=== PATIENT | male | born 1960 | race Caucasian/White ===

== ENCOUNTER 2017-03-29 15:54 | Inpatient (IN) | payer OTHER ==
[~2017-03-29] VITALS: Ht 182.9 cm; Wt 121.5 kg
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
--- NOTE | ~2017-03-29 | ENPV ---
Vascular Lower Extremities DVT Study Procedure Demographics Patient Name SUHA HERRING Date of Study 03/29/2017 Patient Number [id number] Gender Male Date of 1960 Age 56 Visit Number [id number] Height Accession Number [id number] Weight Room Number G3208 BSA BMI Referring Patricia Manjarrez Interpreting Juan Keene MD Physician Bren Manjarrez MD Physician Physician Ordering Physician Patricia Manjarrez Calender Wind Up Helper Bar Pilot Kem Vo RD, RVT Conclusions Summary There are several mildly enlarged lymph nodes noted in the inguinal groin. No evidence of deep vein thrombosis or superficial thrombophlebitis in the right lower extremity . Procedure Type of Study: Veins:Lower Extremities DVT Study, Lower Extremity Right. Indications for Study:Pain in Limb and Swelling of Limb. Appropriate Use Criteria:9 Patient Status:STAT. Study Location:ER. Technical Quality:Good visualization. Velocities are measured in cm/s ; Diameters are measured in cm Right Lower Extremities DVT Study Measurements Right 2D and Doppler Measurements + + + + +------+------+ + !Location !Visualized!Compressibility!Thrombosis!Signal!Reflux!Reflux ! ! ! ! ! ! ! !(sec) ! + + + + +------+------+ + !GSV Thigh !Yes !Yes !None !Phasic! ! ! + + + + +------+------+ + !Common !Yes !Yes !None !Phasic! ! ! !Femoral ! ! ! ! ! ! ! + + + + +------+------+ + !Prox !Yes !Yes !None !Phasic! ! ! !Femoral ! ! ! ! ! ! ! + + + + +------+------+ + !Mid Femoral!Yes !Yes !None !Phasic! ! ! + + + + +------+------+ + !Dist !Yes !Yes !None !Phasic! ! ! !Femoral ! ! ! ! ! ! ! + + + + +------+------+ + !Popliteal !Yes !Yes !None !Phasic! ! ! + + + + +------+------+ + !Gastroc !Yes !Yes !None ! ! ! ! + + + + +------+------+ + !PTV !Yes !Yes !None ! ! ! ! + + + + +------+------+ + !Peroneal !Yes !Yes !None ! ! ! ! + + + + +------+------+ + Left Lower Extremities DVT Study Measurements Left 2D and Doppler Measurements + + + + +------+------+ + !Location !Visualized!Compressibility!Thrombosis!Signal!Reflux!Reflux ! ! ! ! ! ! ! !(sec) ! + + + + +------+------+ + !Common !Yes !Yes !None !Phasic! ! ! !Femoral ! ! ! ! ! ! ! + + + + +------+------+ + Signature dtt: KAMILA HARMON dtd: 03/29/17 1901 Physician Self Edit
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
--- NOTE | ~2017-03-29 | OR ---
PATIENT'S NAME: SUHA PLATA [facility] AGE: 56 Y [address] ROOM: [place] [address] LOCATION: [facility] [place] ADMIT DATE: 03/29/2017 OR/Procedure Report DISCHARGE DATE: 04/06/2017 FAMILY PHYSICIAN: JUAN JOSE GUZMAN MD ATTENDING PHYSICIAN: JUAN JOSE GUZMAN SURGEON: Torrie Gee MD FUEL EFFICIENT AIRCRAFT DESIGNER: None. DATE OF PROCEDURE: 03/30/2017 Added width of wound per physician 04/17/2017 AO POSTOPERATIVE DIAGNOSES: 1. Right thigh abscess. 2. History of vascular stenting and complex wound closure in outside institution. POSTOPERATIVE DIAGNOSES: 1. Right thigh abscess. 2. History of vascular stenting and complex wound closure in outside institution. PROCEDURES: 1. Irrigation and debridement of right thigh abscess measuring 20 cm in length, 7 cm in depth, and 7 cm in width at thigh. Debridement included skin, subcutaneous tissue, muscle, and fascia. 2. Placement of a negative pressure incisional wound VAC. Wound measuring 20 cm in length and 7 cm in depth, and 7 cm in width (>50 sq cm). ANESTHESIA: General endotracheal anesthesia. FLUIDS: See anesthesia report. ESTIMATED BLOOD LOSS: 20 mL. SPECIMEN: Right thigh tissue and cultures. COMPLICATIONS: None. DISPOSITION: Stable in PACU. COUNTS: All counts correct. INDICATIONS: Mr. Plata is a pleasant 56-year-old gentleman, who underwent the noted procedures above. The risks, benefits, and alternatives pursuing surgical intervention were discussed the patient detail. He elected to proceed with surgery as noted above. Anesthesia was consulted for their perioperative evaluation the patient. I marked the right thigh indicating correct surgical PATIENT'S NAME: SUHA PLATA [facility] AGE: 56 Y [address] ROOM: [place] [address] LOCATION: [facility] [place] ADMIT DATE: 03/29/2017 OR/Procedure Report DISCHARGE DATE: 04/06/2017 FAMILY PHYSICIAN: JUAN JOSE GUZMAN MD ATTENDING PHYSICIAN: JUAN JOSE GUZMAN. DESCRIPTION OF PROCEDURE: The patient was brought from the holding area to the operating room. A time-out was performed. Antibiotics were already being scheduled. The right lower extremity then prepped and draped in a sterile fashion. I turned my attention the right thigh. There was an abscess measuring approximately 20 cm in length followed by 7 cm in depth. This due to a previous incision. Admitting secondarily infected. The debridement included skin, subcutaneous tissue, muscle, fascia. I passed 6 L of normal sterile saline solution through the wound via pulsatile lavage. A series of 15 blade knifes, 10 blade knifes and curette and rongeur as were used for the debridement portion of the procedure. After the wound was thoroughly debrided, a negative pressure wound VAC was applied to the thigh. A good seal was encountered. A bulky Weeks dressing was placed to the right leg. The patient was then transferred to operating table onto the stretcher and extubated. He was brought to recovery room in stable condition. Intraoperative cultures of the wound as well as nonviable soft tissue was sent to the lab for culture and analysis. There were no intraoperative complications noted. IMPRESSION: The patient is status post the noted procedures above. PLAN: The patient will be weightbearing as tolerated in the right lower extremity with the wound VAC. We will maintain wound VAC therapy for now. Antibiotics will be as ordered. The Hospitalist continue to manage the patient's concomitant medical comorbidities. We will follow up the intraoperative cultures. Physical Therapy and Occupational Therapy will consulted for early ambulation prevention of deconditioning. The patient may be right weightbearing as tolerated on the right lower extremity. The patient will likely require return to the operating room. The next 48 to 72 hours to have a the wound re-irrigated and debrided it with a new placement of wound VAC. DVT prophylaxis will be in the form of Lovenox. I will follow the patient closely in the postoperative period. TORRIE GEE MD PATIENT'S NAME: SUHA PLATA [facility] AGE: 56 Y [address] ROOM: [place] [address] LOCATION: [facility] [place] ADMIT DATE: 03/29/2017 OR/Procedure Report DISCHARGE DATE: 04/06/2017 FAMILY PHYSICIAN: JUAN JOSE GUZMAN MD ATTENDING PHYSICIAN: JUAN JOSE GUZMAN/keri /[id number] Added width of wound per physician 04/17/2017 AO d: 03/30/17 1800 t: 04/18/17 1042, OPERATIVE SUMMARY
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
--- NOTE | ~2017-03-29 | OR ---
PATIENT'S NAME: SUHA PLATA [facility] AGE: 56 Y [address] ROOM: [address] [address] LOCATION: [facility] [place] ADMIT DATE: 03/29/2017 OR/Procedure Report DISCHARGE DATE: 04/06/2017 FAMILY PHYSICIAN: JUAN JOSE GUZMAN MD ATTENDING PHYSICIAN: JUAN JOSE GUZMAN SURGEON: Torrie Gee MD RESIDENTIAL PROPERTY TAX APPRAISER: Bk Perry PA-C. DATE OF PROCEDURE: 04/03/2017 Added width of wound per physician 04/17/2017 AO PREOPERATIVE DIAGNOSIS: Right infected thigh wound. POSTOPERATIVE DIAGNOSIS: Right infected thigh wound. PROCEDURE: 1. Repeat irrigation and debridement of right thigh wound, measuring 20 cm in length x 7 cm in depth, and 7 cm in width. Debridement included skin, subcutaneous tissue, muscle, and fascia. 2. Placement of negative pressure wound VAC (>50 sq cm). ANESTHESIA: General endotracheal anesthesia. ESTIMATED BLOOD LOSS: Less than 25 mL. SPECIMEN: None. TOURNIQUET: None. COMPLICATIONS: None. DISPOSITION: Stable in PACU. COUNTS: All counts were correct. INDICATIONS: Mr. Plata is a 56-year-old gentleman, who underwent the noted procedures above. The risks, benefits, and alternatives pursuing a surgical intervention were discussed the patient in detail. The patient elected to proceed with surgery. Anesthesia was consulted for their perioperative evaluation of the patient. I marked the right thigh indicating the correct surgical site. DESCRIPTION OF PROCEDURE: The patient was brought from the holding area to the operative room. A time-out was performed. General endotracheal anesthesia was administered. The patient is currently receiving scheduled antibiotics. The right lower extremity was then prepped and draped in a sterile fashion. I PATIENT'S NAME: SUHA PLATA [facility] AGE: 56 Y [address] ROOM: [address] [address] LOCATION: [facility] [place] ADMIT DATE: 03/29/2017 OR/Procedure Report DISCHARGE DATE: 04/06/2017 FAMILY PHYSICIAN: JUAN JOSE GUZMAN MD ATTENDING PHYSICIAN: JUAN JOSE GUZMAN turned my attention to the right thigh. We measured the wound, which measured 20 cm in length by approximately 7 cm in depth. The soft tissue looked more granulated. There did not appear to be active infection. There was good bleeding present. A 1.5 L of normal sterile saline solution via pulsatile lavage was placed to the wound. I then performed my debridement. I used a 10 blade knife and a series of curette and rongeur to remove nonviable tissue. Debridement included skin, subcutaneous tissue, muscle, and fascia. The wound was then copiously irrigated again with another 1.5 L of normal sterile saline solution. A silver impregnated wound VAC was placed in the wound and attached the wound VAC therapy. A good seal with drapes was established. Sterile dressings were then placed in the form of Webril and Bryan wrap from the toes up to the proximal thigh to provide a compressive dressing. The patient was then transferred to the operating room table on the stretcher and extubated. He was brought to the recovery room in stable condition. There were no intraoperative complications noted. Of note, my PA, Bk Perry PA-C, played an integral role in the intraoperative care of this patient. This included preoperative positioning, intraoperative expert retraction, and closing and wound VAC dressing functions. IMPRESSION: The patient is status post the noted procedure above. PLAN: The patient will be weightbearing as tolerated in the right lower extremity. Aspirin may be used for DVT prophylaxis. Antibiotics will be continued as scheduled. The Case Management and Social Work will likely plan the patient to have a home wound VAC. I believe that in the next 1 to 2 weeks after continuing antibiotic therapy, the patient may be a candidate for primary closure of the wound. We will ask the wound care service to see and monitor the wound VAC on the floor. I will continue to monitor the patient closely in the postoperative period. TORRIE GEE MD RCD/modl PATIENT'S NAME: SUHA PLATA [facility] AGE: 56 Y [address] ROOM: [address] [address] LOCATION: [facility] [place] ADMIT DATE: 03/29/2017 OR/Procedure Report DISCHARGE DATE: 04/06/2017 FAMILY PHYSICIAN: JUAN JOSE GUZMAN MD ATTENDING PHYSICIAN: JUAN JOSE GUZMAN /[id number] Added width of wound per physician 04/17/2017 AO d: 04/03/17 1043 t: 04/18/17 1047, OPERATIVE SUMMARY
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
[2017-03-29 17:07] LABS: BASOPHIL # 0.1 K/uL (0.0-0.2); BASOPHIL % 0.5 %; EOSINOPHIL # 0.2 K/uL (0.0-0.5); EOSINOPHIL % 1.6 %; HEMATOCRIT 36.1 % (37.0-53.0); HEMOGLOBIN 11.6 g/dL (12.0-17.0); IMMATURE GRANULOCYTE % 0.3 %; LYMPHOCYTE # 1.4 K/uL (0.8-4.0); MCH 29.2 pg (27.0-34.0); MCHC 32.1 gm/dL (32.0-36.5); MCV 90.9 fl (83.0-98.0); MONOCYTE # 0.9 K/uL (0.0-1.0); MONOCYTE % 8.1 %; NEUTROPHIL # (ANC) 8.5 K/uL (1.4-9.0); NEUTROPHIL % 76.5 %; NRBC % 0 /100WBC (0-0.00); PLATELET COUNT 257 K/uL (150-450); RBC 3.97 M/uL (4.00-6.00); RDW-CV 13.2 % (11.9-14.6); WBC 11.1 K/uL (4.0-11.0)
[2017-03-29 17:11] LABS: BILIRUBIN URINE NEGATIVE (NEGATIVE); BLOOD URINE NEGATIVE /UL (NEGATIVE); COLOR URINE YELLOW (YELLOW); GLUCOSE URINE NEGATIVE (NEGATIVE); KETONE URINE NEGATIVE (NEGATIVE); LEUKOCYTES URINE NEGATIVE /UL (NEGATIVE); NITRITE URINE NEGATIVE (NEGATIVE); PROTEIN URINE NEGATIVE (NEGATIVE); TURBIDITY URINE CLEAR (CLEAR); UROBILINOGEN URINE NORMAL (NORMAL)
[2017-03-29 17:15] LABS: INR - (THERAPEUTIC) 1.01 (0.92-1.07); PROTIME 10.6 SECONDS (9.8-11.4); PTT 29 SECONDS (25-32)
[2017-03-29 17:32] LABS: ALBUMIN 3.2 gm/dL (3.5-5.0); ALK PHOS 60 IU/L (33-138); ALT 38 IU/L (12-78); ANION GAP 14.1 (10.0-19.0); AST 17 IU/L (10-40); BLOOD UREA NITROGEN 14 mg/dL (6-24); CALCIUM 8.9 mg/dL (8.5-10.5); CHLORIDE 106 mMol/L (96-110); CO2 25 mMol/L (22-32); CREATININE 0.9 mg/dL (0.6-1.3); ESTIMATED GFR (MDRD EQUATION) > 60; POTASSIUM 4.1 mMol/L (3.7-5.1); SODIUM 141 mMol/L (135-145); TOTAL BILIRUBIN 0.3 mg/dL (0.0-1.5); TOTAL PROTEIN 8.1 g/dL (6.0-8.4)
[2017-03-29] MEDS ORDERED: MAG-OX-400(241400 MG PO (19:56)
[2017-03-29] MEDS ORDERED: FLONASE 50 MCG/16 GM NOSE (19:56)
[2017-03-29] MEDS ORDERED: STOOL SOFTENER100 MG PO (19:57)
[2017-03-29] MEDS ORDERED: SYMBICORT 16010.2 GM INH (19:57)
[2017-03-29] MEDS ORDERED: VITAMIN D1000 UNIT PO (19:58)
[2017-03-29] MEDS ORDERED: ASCORBIC ACID500 MG PO (19:58)
[2017-03-29] MEDS ORDERED: VITAMIN A10000 UNIT PO (19:58)
[2017-03-29] MEDS ORDERED: POTASSIUM99 MG PO (20:00)
[2017-03-29] MEDS ORDERED: B COMPLEX1 EACH PO (20:00)
[2017-03-29] MEDS ORDERED: NEURONTIN300 MG PO (20:00)
[2017-03-29] MEDS ORDERED: ASPIRIN325 MG PO (20:02)
[2017-03-29] MEDS ORDERED: ZINC50 M1 PO (20:02)
[2017-03-29] MEDS ORDERED: ATIVAN 1 MG1 MG PO (20:10)
[2017-03-29] MEDS ORDERED: OXYCODONE HCL10 MG PO (20:12)
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
--- NOTE | 2017-03-30 07:46 | NUR ---
Significant Event: ADMIT AT 2014. PATIENT A/O X3. ON HIS R) LATERAL THIGH IS AN MONTH OLD SURGICAL INCISION THAT IS REDENED AND OF NOW HAS 3 BLISTERED AREAS THAT CONTINUE TO GET LARGER AND ARE OOZING/WEEPING OUT COPIOUS AMOUNTS OF SERO/SANG DRAINAGE. ALSO HAS AREAS OF PETECHIAE TO R) LOWER LEG/FOOT. PATIENT HAS VERY GOOD PULSES. NUMBNESS/TINGLING TO R) LEG. IV TO R) ANTECUBITAL. ON IV ATB. ORTHO CONSULTED AND AWAITING TO SEE DR GEE. HAVE KEPT NPO SINCE MIDNIGHT IN CASE DR GEE WANTS TO DO ANYTHING THIS AM. C/O PAIN AND GAVE DILAUDID AT 2354. ALSO C/O ANXIETY AND GAVE ATIVAN AT 0635. Follow up:
--- NOTE | 2017-03-30 14:45 | NUR ---
Introduced self/role to patients Lori, patient still down at surgery. No needs over the weekend. Just got a walker, shower bench and toilet riser. She reports they are putting on a wound vac, will have to go down to surgery in a few days and they home with a wound vac. She reports there is were issues with insurance and wound vac this last time. Added my name to his marker board, will continue to follow and plan to see Sunday.
--- NOTE | 2017-03-30 14:51 | NUR ---
Significant Event: Pt denies pain. Very anxious this am, received Ativan IV at 0645 with some relief. Right thigh incision has large blisters and oozing sero/sang drainage, large amt. Incision site red throughout. NPO. Left for OR at 1030 and not back at this time for an I&D and wound vac placement. Good csm to leg. Follow up:
--- NOTE | 2017-03-30 20:51 | NUR ---
LATE ENTRY: RECIEVED PATIENT AT 1330, RESTING COMFORTABLE. O2 ON PER MASK GOOD AIR MOVEMENT BUT LUNGS ARE COARSE. 1400 PATIENT STARTING TO WAKE UP A LITTLE MORE AND IS STATING THAT HIS THROAT IS SORE. HE IS COUGHING UP SOME PHLEM AND GRABBING AT THIS THROAT STATING THAT IT HURTS. 1410 O2 SATS DROPPING AND I HAVE TO PUT NASAL CANULA ON TO MAIONTAIN SATS GREATER THAN 90%. CALL PLACED TO [facility] CONTACTED R/T O2 SATS. ORDER RECIEVED FOR ALBUTEROL. 1420 PATIENT IS STARTING TO HAVE A BIT OF A STRIDER AND ORDER WAS RECIEVED FOR ] RACEMIC EPI. 1430 PATIENT IS RESPONDING WELL TO THIS AND IS STARTING TO RELAX.
[2017-03-31 05:24] LABS: BASOPHIL % 0.4 %; EOSINOPHIL % 0.4 %; HEMATOCRIT 31.3 % (37.0-53.0); HEMOGLOBIN 9.8 g/dL (12.0-17.0); IMMATURE GRANULOCYTE % 0.3 %; LYMPHOCYTE # 1.5 K/uL (0.8-4.0); LYMPHOCYTE % 16.5 %; MCH 28.7 pg (27.0-34.0); MCHC 31.3 gm/dL (32.0-36.5); MCV 91.5 fl (83.0-98.0); MONOCYTE # 0.9 K/uL (0.0-1.0); MONOCYTE % 9.6 %; MPV 10.3 fl (9.4-12.4); NEUTROPHIL # (ANC) 6.7 K/uL (1.4-9.0); NEUTROPHIL % 72.8 %; NRBC % 0 /100WBC (0-0.00); PLATELET COUNT 259 K/uL (150-450); RBC 3.42 M/uL (4.00-6.00); RDW-CV 13.2 % (11.9-14.6); WBC 9.2 K/uL (4.0-11.0)
[2017-03-31 05:40] LABS: ANION GAP 10.9 (10.0-19.0); BLOOD UREA NITROGEN 12 mg/dL (6-24); CALCIUM 8.4 mg/dL (8.5-10.5); CHLORIDE 108 mMol/L (96-110); CO2 26 mMol/L (22-32); CREATININE 0.8 mg/dL (0.6-1.3); ESTIMATED GFR (MDRD EQUATION) > 60; POTASSIUM 3.9 mMol/L (3.7-5.1); SODIUM 141 mMol/L (135-145)
--- NOTE | 2017-03-31 08:31 | NUR ---
Significant Event: Pt alert and oriented. CSM WML. Wound vac to right hip with 50 mls output. Weaned off 02. Stood at bedside x 3 to use urinal and tolerated well. Uses walker from home. Pt hungry, ordered a regular diet for dinner. VSS, afebrile. Follow up: Cont ortho post op orders.
--- NOTE | 2017-03-31 17:58 | NUR ---
Patient is alert and oriented, VSS, on room air. 1 assist with walker. R) leg is completely wrapped in ALAINA wrap, CDI. Wound vac was not marked, unsure of output, marked now. Small pressure sore to R) buttocks, patient is able to move self with trapeze. Regular diet. Ambulated in the halls twice with PT. Had 2 BMs this shift.
[2017-04-01 05:28] LABS: BASOPHIL # 0.1 K/uL (0.0-0.2); BASOPHIL % 1.1 %; EOSINOPHIL # 0.2 K/uL (0.0-0.5); EOSINOPHIL % 4.2 %; HEMATOCRIT 33.5 % (37.0-53.0); HEMOGLOBIN 10.8 g/dL (12.0-17.0); IMMATURE GRANULOCYTE % 0.4 %; LYMPHOCYTE # 1.8 K/uL (0.8-4.0); LYMPHOCYTE % 32.2 %; MCH 28.9 pg (27.0-34.0); MCHC 32.2 gm/dL (32.0-36.5); MCV 89.6 fl (83.0-98.0); MONOCYTE # 0.5 K/uL (0.0-1.0); MPV 9.8 fl (9.4-12.4); NEUTROPHIL % 53.1 %; NRBC % 0 /100WBC (0-0.00); PLATELET COUNT 301 K/uL (150-450); RBC 3.74 M/uL (4.00-6.00); RDW-CV 13.3 % (11.9-14.6); WBC 5.7 K/uL (4.0-11.0)
--- NOTE | 2017-04-01 06:59 | NUR ---
Significant Event: A/O X3 AND COOPERATIVE WITH CARES. C/O L) LEG PAIN AND GAVE OXYCODONE X2 LAST AT 0430 WITH RELIEF NOTED. ALAINA WRAP TO R) LEG C/D/I WITH WOUND-VAC INTACT AND HAD ABOUT 50ML OF DRAINAGE THROUGH SHIFT. IV TO L) WRIST FLUSHES AND IV FLUIDS INFUSING WITHOUT DIFFICULTY. IS UP WITH 1 ASSIST AND WALKER. GROIN AREA VERY REDDENED AND EXCORIATED, NYSTATIN. Follow up:
--- NOTE | 2017-04-01 17:22 | NUR ---
Patient is alert and oriented, VSS, on room air. 1 assist with walker and gaitbelt. Wound vac to R) leg, leanna wrap from groin to toes. L) wrist IV infiltrated, new IV started in R) forearm. Infusing at 125ml/hr. Laury and ativan given around 1630. Plan is to return to surgery on Sunday for another I&D.
[2017-04-02 05:40] LABS: BASOPHIL % 0.6 %; EOSINOPHIL # 0.3 K/uL (0.0-0.5); EOSINOPHIL % 4.3 %; HEMATOCRIT 33.4 % (37.0-53.0); HEMOGLOBIN 10.6 g/dL (12.0-17.0); IMMATURE GRANULOCYTE % 0.3 %; LYMPHOCYTE # 1.9 K/uL (0.8-4.0); LYMPHOCYTE % 28.8 %; MCH 28.4 pg (27.0-34.0); MCHC 31.7 gm/dL (32.0-36.5); MCV 89.5 fl (83.0-98.0); MONOCYTE # 0.7 K/uL (0.0-1.0); MONOCYTE % 10.9 %; MPV 9.9 fl (9.4-12.4); NEUTROPHIL # (ANC) 3.6 K/uL (1.4-9.0); NEUTROPHIL % 55.1 %; NRBC % 0 /100WBC (0-0.00); PLATELET COUNT 295 K/uL (150-450); RBC 3.73 M/uL (4.00-6.00); RDW-CV 13.5 % (11.9-14.6); WBC 6.5 K/uL (4.0-11.0)
--- NOTE | 2017-04-02 07:04 | NUR ---
Significant Event: A/O X3 AND COOPERATIVE WITH CARES. C/O R) LEG PAIN RATING AT 7, GAVE 10MG OXYCODONE AT 0029 WITH RELIEF NOTED. DRESSING TO R) THIGH/LEG C/D/I. WOUND-VAC IN PLACE AND HAD ABOUT 20ML DRAINAGE OUT THIS SHIFT. IV TO R) FA WITH IV FLUIDS INFUSING WITHOUT DIFFICULTY. CONTINUES ON IV ATB. C/O ANXIETY AND GAVE ATIVAN AT 0554 WITH RELIEF NOTED. VSS AND AFEBRILE. VOIDS PER URINAL. SLEPT OFF/ON THROUGH NIGHT. UP WITH 1 ASSIST AND WALKER. DOES WALK IN [place]. Follow up:
--- NOTE | 2017-04-02 16:59 | NUR ---
Significant Event:A/O x3, cooperative with cares. Wound vac to R) leg, entire leg wrapped with leanna wrap. Pain controlled with oxycodone 10 mg. has anxiety about stay, plan for OR tomorrow to ID R) leg again and reapply wound vac. WBAT. VSS. Uses urinal and has had good UOP. PIV saline locked. Will request ativan if he gets too anxious. Follow up:Pain control and preop checklist.
--- NOTE | 2017-04-03 00:39 | NUR ---
Significant Event: NO COMPLAINTS OF PAIN. PT RESTED DURING SHIFT. Follow up:
--- NOTE | 2017-04-03 02:55 | NUR ---
SIGNIFICANT EVENT: Pt alert & oriented. VSS on RA. Uses urinal independently at bedside. Once daily ativan given at 2356. Q6h Oxycodone give x2 this shift, last at 0100. Hold lovenox, NPO after MN - both d/t I&D of R) leg scheduled today. R) FA IV is SL. Pleasant and cooperative with cares.
--- NOTE | 2017-04-03 11:28 | NUR ---
A-SCREENED D/T LOS 03/30-I&D OF R)LEG WITH WOUND VAC PLACMENT BACK TO OR FOR I&D TODAY. GROIN REDDENED AND EXCORIATED HT: 72 IN. WT: 121.5 KG. BMI: 36.3 LABS: NA 11, K+ 3.9, GLU 113, BUN 12, INJECTION SPECIALIST 0.8, ALB 3.2 MEDS: DILAUDID, ZOFRAN, MIRALAX, ANCEF, MAG-OX, NEURONTIN, COLACE, VIT D, VIT C, ROXICODONE, ATIVAN DIET RX: NPO. PO INTAKE PRIOR TO NPO STATUS WAS GOOD 75-100% EST NUTR NEEDS: 4718-4839 KCALS (15-20 KCALS/KG) 122-162 GM PROTEIN (1.5-2.0 GM/KG) 1 ML FLUID/KCAL D-AT NUTRITION RISK W/INCREASED PROTEIN NEEDS R/T ALTERED SKIN INTEGRITY AEB I&D OF RIGH LEG, WOUND VAC. I-START BEVERLY BID TO PROMOTE HEALING M/E-GOAL: PO INTAKE >/=75% FOR DURATION OF ADMIT 1)F/U PO INTAKE, SUPPLEMENT, SKIN, AND POC IN 3-5 DAYS 2)ASSIST NEEDED
--- NOTE | 2017-04-03 17:11 | NUR ---
Significant Event: Alert and oriented X 3. O2 by nasal cannula at 2L. May be weaned down as was dropping into the mid 80's while sleeping. I & D to right thigh with wound vac. Pulse to foot +2, cap refill <3, good sensations. Right leg weaker than left. Up with 1 assist, gait belt and walker. Weight bearing as tolerated. Peripheral IV to right forearm, flushes well, no blood return and saline locked. Regular diet. Roxycodone last given at 1511 for pain of a 7, relief noted. Nothing noted in wound vac at this time, machine is in therapy mode. Pleasant and cooperative with cares. Follow up:
--- NOTE | 2017-04-04 03:05 | NUR ---
Alert and oriented. Cooperative. VSS. RA. SL RFA. No n/v. Wound vac in place and operational to right thigh. Roxicodone Q6H PRN. Ativan given last night at 0. Stands at bedside independently to use urinal. Ambulated with PT in halls yesterday afternoon. Continue plan of care, discharge when appropriate, possibly .
[2017-04-04 04:41] LABS: BASOPHIL % 0.4 %; EOSINOPHIL # 0.1 K/uL (0.0-0.5); HEMOGLOBIN 10.6 g/dL (12.0-17.0); IMMATURE GRANULOCYTE % 0.4 %; LYMPHOCYTE # 2.1 K/uL (0.8-4.0); LYMPHOCYTE % 20.1 %; MCH 28.7 pg (27.0-34.0); MCHC 32.1 gm/dL (32.0-36.5); MCV 89.4 fl (83.0-98.0); MONOCYTE # 0.9 K/uL (0.0-1.0); MONOCYTE % 8.5 %; MPV 9.7 fl (9.4-12.4); NEUTROPHIL # (ANC) 7.2 K/uL (1.4-9.0); NEUTROPHIL % 69.6 %; NRBC % 0 /100WBC (0-0.00); PLATELET COUNT 332 K/uL (150-450); RBC 3.69 M/uL (4.00-6.00); RDW-CV 13.7 % (11.9-14.6); WBC 10.3 K/uL (4.0-11.0)
--- NOTE | 2017-04-04 15:27 | NUR ---
Spoke with charge nurse Magnolia. Plan is for patient to go home Sunday with a wound vac. Gallito with [facility] aware and has paperwork on the chart for the doctor to complete.
--- NOTE | 2017-04-04 19:16 | NUR ---
AAOx3. Cooperative with cares. Up independently w/walker. Weight bearing as tolerated. Wound vac to R)leg w/5ml serous output. Tolerating regular diet well. Had moderate BM, then gave Mg Citrate as pt still needing to pass more. IV to RH s/l'd w/GBR. Gave Ativan IV x1 and Oxy IR 10mg prior to shift change for c/o discomfort/sensations in leg, but unable to describe well. If not tolerable in early evening, consider adjustment to Neurontin??. CM working on Home wound vac for Sunday change-out by [facility] and probable d/c home w/HH. FMLA papers in room for MDs; will leave msg for CM re: completion. VSS, afebrile, on RA.
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
--- NOTE | 2017-04-05 09:15 | NUR ---
Nursing had left a message that needs help with FMLA papers. Attempted to call the , left a message. FMLA paperwork has to be completed by the doctor. I can either place the papers on the chart or they can run the paperwork over to the clinic for the doctor. 919 Nurse let me know FMLA papers are on the white board in patient room. Grabbed the papers made a copy. Place one on the chart flagged for Doctor Correia, placed copy back on white board. 929 Spoke with Gallito with [facility]. Patient interested in HHC. Introduced self/role to patient. He has no preference on HHC. 09 Called [facility] #[id number] made referral faxed info #[phone]. Placed face to face on the chart and flagged for Dr. Correia. 4 Called [facility] to follow up on coverage, spoke to Kerri. Thakkar and directed to [place]. Called Naomi in [place] #[phone], she has not received paperwork yet to run coverage. She will message Radha. 1430 Left a message on 's phone that FMLA papers on the chart and about HHC referral. Gave her office number to call for questions as I am out the rest of the week.
--- NOTE | 2017-04-05 17:12 | NUR ---
Patient is alert and oriented, VSS, on room air. 1 assist with walker and gait belt. Leg is wrapped with cast padding and ALAINA wrap. Wound vac in place with 50ml out, will be replaced tomorrow. Please premedicate for change around 0730. Possibly home tomorrow. Patient was able to go outside for a walk with PT today and it greatly improved his mood.
--- NOTE | 2017-04-06 03:46 | NUR ---
Significant Event: SBA WITH FWW; PT REFUSED GAITBELT AND BED ALARM AT NIGHT. STEPHANIE/ATIVAN ADMINISTERED AROUND 2029 FOR PAIN/ANXIETY. PT WAS VERY TALKATIVE ABOUT CONCERNS AT THAT TIME. PT RESTED WELL FOR REST OF SHIFT. PIV TO R) HAND FLUSHED WELL. VERY LITTLE OUTPUT FROM WOUND VAC. PT REQUESTS STEPHANIE 10MG TO BE ADMINISTERED AT [phone]. EXCELLENT APPETITE. Follow up: PAIN, TO D/C TODAY, WOUND VAC TO BE CHANGED BY [facility] THIS AM
[2017-04-06] MEDS ORDERED: MIRALAX PO527 GM/BOT PO (12:31)
[2017-04-06] MEDS ORDERED: NYATA15 GM TOP (12:33)
[2017-04-06] MEDS ORDERED: MIRALAX17 GM PO (12:34)
[2017-04-06] MEDS ORDERED: FLOMAX0.4 MG PO (12:34)
[2017-04-06] MEDS ORDERED: MILK OF MA400 MG/5 M PO (12:36)
[2017-04-06] MEDS ORDERED: CEFADROXIL500 MG PO (12:40)
--- NOTE | 2017-04-06 16:02 | NUR ---
DISCHARGE SUMMARY - VSS. HOME WITH WOUND VAC. HOME HEALTH TO VISIT. WALKING WITH WALKER WITH WHEELS. STANDBY ASSIST. BM TODAY. FOLLOW-UP APPOINTMENTS MADE. PATIENT STATES UNDERSTANDING OF INSTRUCTIONS. DISMISSED PER WHEEL CHAIR TO FAMILY VEHICLE.
[2017-04-16] MEDS ORDERED: ZOLOFT25 MG PO (10:52)
== END 2017-04-06 14:40 | disposition home health service (06) | DRG 580 ==
LOC: GMED 15:54 → GMSU 19:13
PROVIDERS: Family Medicine; ADMIT Family Medicine
DX: L02.415 Cutaneous abscess of right lower limb (principal); D62 Acute posthemorrhagic anemia; L03.115 Cellulitis of right lower limb; B96.20 Unspecified Escherichia coli [E. coli] as the cause of diseases classified elsewhere; B95.61 Methicillin susceptible Staphylococcus aureus infection as the cause of diseases classified elsewhere; N40.0 Benign prostatic hyperplasia without lower urinary tract symptoms; B35.6 Tinea cruris; K59.00 Constipation, unspecified; F41.9 Anxiety disorder, unspecified; E78.5 Hyperlipidemia, unspecified; J30.9 Allergic rhinitis, unspecified; Z95.828 Presence of other vascular implants and grafts; Z87.828 Personal history of other (healed) physical injury and trauma
CPT/HCPCS: J0690; J1100; J1170; J1650; J2001; J2060; J2405; J2543; J3010; J3360; J3370; J3480; J7030; J7040; J7050

== ENCOUNTER 2017-04-07 09:17 | Emergency (ER) | payer OTHER ==
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
[~2017-04-07 09:17] MED LIST: ASCORBIC ACID500 MG PO; ASPIRIN325 MG PO; ATIVAN 1 MG1 MG PO; B COMPLEX1 EACH PO; CEFADROXIL500 MG PO; FLOMAX0.4 MG PO; FLONASE 50 MCG/16 GM NOSE; MAG-OX-400(241400 MG PO; MILK OF MA400 MG/5 M PO; MIRALAX PO527 GM/BOT PO; MIRALAX17 GM PO; NEURONTIN300 MG PO; NYATA15 GM TOP; OXYCODONE HCL10 MG PO; POTASSIUM99 MG PO; STOOL SOFTENER100 MG PO; SYMBICORT 16010.2 GM INH; VITAMIN A10000 UNIT PO; VITAMIN D1000 UNIT PO; ZINC50 M1 PO
[2017-04-16] MEDS ORDERED: ZOLOFT25 MG PO (10:52)
== END 2017-04-07 10:18 | disposition disaster alternative care site (69) ==
LOC: GMED 09:17
DX: T88.8XXA Other specified complications of surgical and medical care, not elsewhere classified, initial encounter (principal); J45.909 Unspecified asthma, uncomplicated; Z88.5 Allergy status to narcotic agent; Z79.82 Long term (current) use of aspirin; Z79.899 Other long term (current) drug therapy

== ENCOUNTER 2017-04-17 09:23 | Day surgery (SDC) | payer OTHER ==
[~2017-04-17] VITALS: Ht 182.9 cm; Wt 122.3 kg
--- NOTE | ~2017-04-17 | OR ---
PATIENT'S NAME: SUHA PLATA [facility] AGE: 56 Y [address] ROOM: [place] [address] LOCATION: [facility] ADMIT DATE: 04/17/2017 OR/Procedure Report DISCHARGE DATE: FAMILY PHYSICIAN: JUAN JOSE GUZMAN MD ATTENDING PHYSICIAN: TORRIE GEE SURGEON: Torrie Gee MD HISTORICAL GUIDE: Bk Perry PA-C. DATE OF PROCEDURE: 04/17/2017 PREOPERATIVE DIAGNOSIS: Right infected thigh wound. POSTOPERATIVE DIAGNOSIS: Right infected thigh wound. PROCEDURES: 1. Irrigation and debridement of right thigh wound. Debridement includes skin, subcutaneous tissue, muscle, and fascia. Wound measures 20 cm in length x 6 cm in width x 6 cm in depth. 2. Complex layered primary wound closure of thigh with lysis of adhesions to mobilize soft tissues. 3. Placement of negative pressure incisional wound VAC (>50 sq cm). ANESTHESIA: General endotracheal anesthesia. FLUIDS: See anesthesia report. ESTIMATED BLOOD LOSS: 100 mL. SPECIMEN: None. COMPLICATIONS: None. DISPOSITION: Stable in PACU. COUNTS: All counts correct. INDICATIONS: Mr. Plata is a 56-year-old gentleman, who underwent the noted procedures above. The risks, benefits, and alternatives pursuing surgical interventions were discussed with the patient in detail. I marked the patient's right lower extremity indicating the correct surgical site. DESCRIPTION OF PROCEDURE: The patient was brought from the holding area to the operative room. A time-out was performed. General anesthesia was administered. 3 grams of Ancef was administered for perioperative prophylaxis. PATIENT'S NAME: SUHA PLATA [facility] AGE: 56 Y [address] ROOM: [place] [address] LOCATION: [facility] ADMIT DATE: 04/17/2017 OR/Procedure Report DISCHARGE DATE: FAMILY PHYSICIAN: JUAN JOSE GUZMAN MD ATTENDING PHYSICIAN: TORRIE GEE The right lower extremity was then prepped and draped in a sterile fashion. I turned my attention to the wound. Wound measurements were undertaken. A thorough debridement of the soft tissues including skin, subcutaneous tissue, muscle, and fascia were done using a 10 and 15-blade knife, a series of curettes and rongeurs. A thorough irrigation of the soft tissues was undertaken with 3 L of normal sterile saline solution via pulsatile lavage. Using a 10-blade knife, I performed a lysis of adhesion of the subcutaneous tissue, which was scarred down over the tensor fascia kimberley. Once this tissue was mobilized and has full-thickness flaps both anteriorly and posteriorly, I used #1 nylon suture to begin to approximate the tissue. The same #1 nylon suture was used in an interrupted horizontal mattress fashion to approximate the tissue at the level of the skin. In order to take tension off the wound and prevent formation of deep hematoma, an incisional wound VAC was placed. The incisional wound VAC created a good viable seal. Sterile dressing was placed in the form of Webril and Bryan. The patient was then transferred from the operating table onto the stretcher and extubated. He was brought to the recovery room in stable condition. There were no intraoperative complications noted. Of note, my PA, Bk Perry PA-C, played an integral role in the intraoperative care of this patient. This included preoperative positioning, intraoperative expert retraction, and closing and dressing functions. IMPRESSION: The patient is status post noted procedure above. PLAN: The patient will be weightbearing as tolerated in the right lower extremity. Wound VAC will remain in place. He will continue his antibiotics as prescribed. Aspirin will be administered for DVT prophylaxis. He will be discharged home with a wound VAC in place. He will follow up in my office in 1 week for repeat clinical evaluation and wound check. MD ASHLEY CORONA/keri /[id number] d: 04/17/171916 t: 04/18/17 1042, OPERATIVE SUMMARY
[~2017-04-17 09:23] MED LIST changes: +ZOLOFT25 MG PO
[2017-04-17] MEDS ORDERED: NYSTATIN1 EAC1 TOP (10:16)
== END 2017-04-17 17:10 | disposition disaster alternative care site (69) ==
LOC: G3N 09:23 → GSDC 09:23
PROC: 0KBQ0ZZ Excision of Right Upper Leg Muscle, Open Approach (ICD-10-PCS; principal; 2017-04-17)
PROC: 0KQQ0ZZ Repair Right Upper Leg Muscle, Open Approach (ICD-10-PCS; 2017-04-17)
DX: T81.4XXA Infection following a procedure, initial encounter (principal); E78.5 Hyperlipidemia, unspecified; N40.0 Benign prostatic hyperplasia without lower urinary tract symptoms; J30.9 Allergic rhinitis, unspecified; Z88.5 Allergy status to narcotic agent; Z98.890 Other specified postprocedural states
CPT/HCPCS: J0690; J2001; J7030; J7040

== ENCOUNTER 2017-05-02 06:12 | Day surgery (SDC) | payer OTHER ==
[~2017-05-02] VITALS: Ht 182.9 cm; Wt 123.0 kg
--- NOTE | ~2017-05-02 | OR ---
PATIENT'S NAME: SUHA PLATA [facility] AGE: 56 Y [address] ROOM: [place] [address] LOCATION: [facility] ADMIT DATE: 05/02/2017 OR/Procedure Report DISCHARGE DATE: FAMILY PHYSICIAN: JUAN JOSE GUZMAN MD ATTENDING PHYSICIAN: TORRIE GEE SURGEON: Torrie Gee MD SPECIALIST PHYSICIANS: Bk Perry PA-C DATE OF PROCEDURE: 05/02/2017 ORTHOPEDIC OPERATIVE REPORT PREOPERATIVE DIAGNOSIS: Chronic right thigh wound with proximal full- thickness wound dehiscence, drainage, and infection. POSTOPERATIVE DIAGNOSIS: Chronic right thigh wound with proximal full- thickness wound dehiscence, drainage, and infection. PROCEDURES PERFORMED: 1. Irrigation and debridement of right proximal thigh wound measuring 6 cm x 4 cm x 3 cm. Debridement included skin, subcutaneous tissue, muscle and fascia. 2. Complex layered wound closure of thigh with nylon and PDS suture. 3. Placement of negative pressure wound VAC, greater than 50 sq cm. ANESTHESIA: General endotracheal anesthesia. FLUIDS: See Anesthesia report. ESTIMATED BLOOD LOSS: Minimal. TOURNIQUET: None. SPECIMENS: None. COMPLICATIONS: None. DISPOSITION: Stable in PACU. COUNTS: All counts were correct. INDICATIONS: Mr. Plata is a pleasant 56-year-old gentleman who underwent the noted procedures above. The risks, benefits, and alternatives pursuing surgical intervention were discussed with the patient in detail. The patient elected to proceed with surgery. I marked the patient's right lower extremity indicating the correct surgical site. Anesthesia was consulted for their PATIENT'S NAME: SUHA PLATA [facility] AGE: 56 Y [address] ROOM: [place] [address] LOCATION: [facility] ADMIT DATE: 05/02/2017 OR/Procedure Report DISCHARGE DATE: FAMILY PHYSICIAN: JUAN JOSE GUZMAN MD ATTENDING PHYSICIAN: TORRIE GEE perioperative evaluation of the patient. OPERATIVE REPORT IN DETAIL: The patient was brought from the holding area to the operating room. A time-out was performed. General endotracheal anesthesia was administered. The right lower extremity was then prepped and draped in a sterile fashion. I turned my attention to the right thigh. Three quarters of the wound from the last debridement and primary closure was healed. The sutures were removed. Approximately, a 6 cm region of the proximal portion of this incision was dehisced. Using a knife, series of curettes, and rongeurs, the area was debrided through skin, subcutaneous tissue, muscle and fascia. 3 L of normal sterile saline solution was passed through the wound using a pulsatile lavage. Using an 0 PDS suture, complex layered closure of the wound was undertaken. A Prevena incisional wound VAC was placed over the incision to provide negative pressure therapy and there was a good seal noted. The patient was then transferred from the operating room table onto the hospital bed and extubated. He was brought to the recovery room in stable condition. There were no intraoperative complications noted. Of note, my PA, Bk Perry PA-C, played an integral role in the intraoperative care of this patient. This included preoperative positioning, intraoperative expert retraction, and closing and dressing functions. IMPRESSION: The patient is status post the noted procedures above. PLAN: The patient will be weightbearing as tolerated on the right lower extremity with a Prevena incisional wound VAC in place. The wound VAC will remain in place for 48 to 72 hours. We will resume the patient's antibiotics. He will be discharged to home from the PACU provided he meets PACU discharge criteria. He will follow up in my office in 1 week for a repeat clinical evaluation. MD ASHLEY CORONA/keri /[id number] d: 05/02/17 1357 t: 05/03/17 0842, OPERATIVE SUMMARY
[~2017-05-02 06:12] MED LIST changes: +NYSTATIN1 EAC1 TOP
[2017-05-02] MEDS ORDERED: DURICEF (NON-500 MG PO (10:30)
== END 2017-05-02 11:15 | disposition disaster alternative care site (69) ==
LOC: GSDC 06:12 → G3N 06:12 → GSDC 08:00
PROC: 0JBL0ZZ Excision of Right Upper Leg Subcutaneous Tissue and Fascia, Open Approach (ICD-10-PCS; principal; 2017-05-02)
PROC: 0KQQ0ZZ Repair Right Upper Leg Muscle, Open Approach (ICD-10-PCS; 2017-05-02)
DX: T81.31XA Disruption of external operation (surgical) wound, not elsewhere classified, initial encounter (principal); E78.00 Pure hypercholesterolemia, unspecified; N40.1 Benign prostatic hyperplasia with lower urinary tract symptoms; R33.8 Other retention of urine; F41.9 Anxiety disorder, unspecified; Z79.82 Long term (current) use of aspirin; Z79.899 Other long term (current) drug therapy; Z98.890 Other specified postprocedural states
CPT/HCPCS: J0690; J1100; J2001; J2405; J3010; J7120